=== PATIENT | male | born 1950 | race Two or more races ===

== ENCOUNTER 2020-10-08 07:35 | Day surgery (SDC) | payer MEDICARE, OTHER ==
[2020-10-07 09:25] LABS: BASOPHILS 0.5 % (0-2); EOSINOPHILS 6.8 % (0-7); HEMATOCRIT 41.4 % (36.0-48.0); HEMOGLOBIN 13.4 g/dL (12-16); LYMPHOCYTES 37.1 % (15-50); MCH 29.5 pg (26.0-34.0); MCHC 32.4 g/dL (31.0-37.0); MEAN PLATELET VOLUME 10.1 fL (7.4-10.4); NEUTROPHILS 47.6 % (40-80); PLATELET COUNT 189 10x3/uL (130-400); RBC 4.55 10x6/uL (4.00-5.40); RDW 14.9 % (11.5-14.5); WBC 6.8 10x3/uL (4.8-10.8)
[2020-10-07 09:44] LABS: ANION GAP 11.6 mmol/L (8-16); CALCIUM 9.3 mg/dL (8.5-10.1); CARBON DIOXIDE 27.4 mmol/L (21.0-32.0); CREATININE - SERUM 1.1 mg/dL (0.6-1.3)
[~2020-10-08] VITALS: Ht 177.8 cm; Wt 132.0 kg
[~2020-10-08 07:35] MED LIST: ALCORTIN A; ASPIRIN81 MG PO; COREG CR40 MG PO; DORZOLAMIDE-TI1 EACH EACH EYE; EDARBYCLOR 40-1 EACH PO; FISH OIL 1,0001 CA1 PO; FLUTICASONE PRO16 GM NASAL; GABAPENTIN100 MG PO; JANUMET XR 1001 EACH PO; LIPITOR20 MG PO; NAPROSYN500 MG PO; NEILMED SINUS RINSE; OMEPRAZOLE20 M1 PO; SOLARAZE100 GM TOPICAL; TRIAMCINOLONE A60 M1 TOPICAL; VENTOLIN HFA [SP8 GM INH; VIAGRA100 MG PO; VITAMIN B-121000 MCG PO; XALATAN 0.0052.5 ML EACH EYE; ZYRTEC10 MG PO
[2020-10-08 09:19] VITALS: BP 169/67; Ht 177.8 cm; Wt 132.0 kg
--- NOTE | 2020-10-08 11:35 | NUR ---
DISCHARGE INSTRUCTIONS REVIEWED WITH PT AND SPOUSE. COPY OF DC INSTRUCTIONS PROVIDED ALONG WITH ORIGINAL RX FOR NORCO. BOTH VOICED UNDERSTANDING.
--- NOTE | 2020-10-08 12:00 | NUR ---
DISCHARGED VIA W/C, ACCOMPANIED BY ZULMA FREDERICK, TO [facility] WITH SPOUSE DRIVING. ALL BELONGINGS WITH PT/SPOUSE.
--- NOTE | 2020-10-08 14:17 | OP ---
PATIENT NAME: KENTON SCHROEDER MEDICAL RECORD: [id number] :54 LOCATION:[facility] ADMISSION DATE: SURGEON: CASPER THRASHER DO DATE OF OPERATION: 10/08/2020 PROCEDURE PERFORMED: Right endoscopic carpal tunnel release and right ring finger A1 miya release. PREOPERATIVE DIAGNOSES: Right ring trigger finger and carpal tunnel syndrome. POSTOPERATIVE DIAGNOSES: Right ring trigger finger and carpal tunnel syndrome. INDICATIONS: Mr. Schroeder is a 70-year-old male who has had right hand numbness and tingling for quite some time, wakes him up. He also has a trigger finger. He got a nerve conduction study showing severe carpal tunnel syndrome. At this point, we are going to do an endoscopic carpal tunnel and also release the A1 miya of the ring finger. He is okay with that and was aware of the risks including infection, bleeding, damage to the median nerve, continued pain, damage to nerves and vessels in the area, loss of motion of the ring finger and blood clots and he signed the consent. SURGEON: Casper Thrasher DO DESCRIPTION OF PROCEDURE: The patient was taken to the operative suite, laid in supine position, given general anesthetic and LMA was placed. He was given 2 grams of Ancef preoperatively. The right upper extremity was then prepped and draped in sterile fashion. Timeout was performed, everyone was in agreeance with the correct side, site, patient and procedure. We then began by exsanguinating the right upper extremity and tourniquet was inflated to 250 mmHg, it was up for 11 minutes. I then made an incision centered over the palmaris longus tendon just through the skin and then used Lazaronelljose manuel to bluntly dissect down to the median nerve. I then released the forearm fascia on top of the median nerve in the wound from distal to proximal. I then used the dilators and went to the carpal tunnel. I then brought the sheath and the camera in, and cleaned off the transverse carpal ligament with a rasp and a probe. We then brought the blade in, raised it up and transected the transverse carpal ligament, fat herniated then down into the site. I then removed the instruments and used long end of the Ragnell and ensured there was no more remaining fibers of the transverse carpal ligament connecting and there were not. We then addressed the trigger finger on the ring finger, made an incision over the distal palmar crease and then made blunt dissection down with two Ragnells down to the A1 miya and released it under direct visualization. Once I released it, I pulled the flexor tendon out to ensure there was no catching and there was not. We then let the tourniquet down and coagulated any bleeding with a bipolar. I then injected 0.25% Marcaine with epinephrine in both sites of 10 mL total. I then closed the carpal tunnel site with 5-0 Monocryl in inverted interrupted fashion and the trigger finger with 5-0 Monocryl in a horizontal mattress fashion. He was then dressed with Steri-Strips, Adaptic, 4 x 4, Kerlix and Coban lightly wrapped on the hand. He was awakened and taken to recovery in stable condition. BLOOD LOSS: Minimal. COMPLICATIONS: None. OPERATIVE REPORT [id number] KENTON SCHROEDERINT:[id number] Voice Confirmation ID: [id number] DOCUMENT ID: [id number] CASPRE THRASHER DO at 1417 CC: [id number] DICTATION DATE: 10/08/20 1036 BAR FINISH OPERATOR: 10/08/20 1200 [facility] 10/08/[address] [facility] [address] [place] [address]
== END 2020-10-08 12:00 | disposition home or self-care (01) ==
LOC: EDSEX 07:35 → D.OPS 07:35
PROVIDERS: Anesthesiology; ATTEND Orthopaedic Surgery
DX: G56.01 Carpal tunnel syndrome, right upper limb (principal); M65.341 Trigger finger, right ring finger; M75.121 Complete rotator cuff tear or rupture of right shoulder, not specified as traumatic